=== PATIENT | male | born 1965 | race Caucasian/White ===

== ENCOUNTER 2016-08-07 11:18 | Emergency (ER) | payer OTHER ==
[2016-08-07] MEDS ORDERED: TETANUS/DIPHTHERIA TOX-ADULT 0.5 ML SYR (>=7YO) IM ONE (11:37)
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
[2016-08-07] MEDS ORDERED: DIPH/PERTUSS(ACELL)/TETANUS VAC/PF 0.5 ML SYR (>=10YO) IM ONE (11:49)
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
[2016-08-07 14:14] VITALS: BP 155/101
== END 2016-08-07 14:10 | disposition home or self-care (01) ==
LOC: ER 11:18
DX: S92.404A Nondisplaced unspecified fracture of right great toe, initial encounter for closed fracture (principal); S00.90XA Unspecified superficial injury of unspecified part of head, initial encounter; M25.571 Pain in right ankle and joints of right foot; V23.4XXA Motorcycle driver injured in collision with car, pick-up truck or van in traffic accident, initial encounter
CPT/HCPCS: 70450; 71260; 72125; 74177; 90471; 90715; 99284